=== PATIENT | male | born 1965 | race Caucasian/White ===

== ENCOUNTER 2017-08-09 08:04 | Emergency (ER) | payer OTHER ==
[2017-08-09] MEDS ORDERED: NS 1,000 ML IV ONE ×2 (08:12→08:54)
[2017-08-09] MEDS ORDERED: KETOROLAC 15 MG/1 ML SDV IVP ONE (08:13)
[2017-08-09] MEDS ORDERED: LIDOCAINE 1% 200 MG in NS 100 ML IV ONE (08:13)
--- NOTE | 2017-08-09 08:25 | EDPHY ---
H & P Stated Complaint: L flank pain radiating to L testicle;+n/v;dx'd w/UTI 3 days ago at [facility] Time Seen by Provider: 08/09/17 08:12 HPI/ROS: CHIEF COMPLAINT: Acute left flank pain and vomiting HISTORY OF PRESENT ILLNESS: The patient presents to the ED with complaints of severe acute left flank pain and vomiting. The patient developed milder symptoms on Sunday of this week. He was having some mild urinary frequency. The patient was seen at urgent care reportedly had a negative urinalysis. He was started on Bactrim at that point time. The patient reported his symptoms seem to improve however returned significantly this morning. He reports 5 episodes of bilious vomiting and 8/10 pain in his left flank. The patient has no prior history of kidney stones. The patient denies any hematuria, history of fall, trauma, recent illness or significant past medical history. REVIEW OF SYSTEMS: A comprehensive 10 point review of systems is otherwise negative aside from elements mentioned in the history of present illness. Source: Patient Exam Limitations: No limitations - Personal History Current Tetanus Diphtheria and Acellular Pertussis (TDAP): Yes - Medical/Surgical History Other PMH: Good health - Social History Smoking Status: Never smoked - Physical Exam Exam: General Appearance: Alert, moderate distress secondary to pain Eyes: Pupils equal and round no pallor or injection ENT, Mouth: Mucous membranes moist Respiratory: There are no retractions, lungs are clear to auscultation Cardiovascular: Regular rate and rhythm Gastrointestinal: Left CVA tenderness, no abdominal tenderness appreciated Neurological: A&O, normal motor function, normal sensory exam, normal cranial nerves Skin: Warm and dry, no rashes Musculoskeletal: Neck is supple nontender Extremities: symmetrical, full range of motion Constitutional: Initial Vital Signs Temperature (C) 36.4 C 08/09/17 08:07 Heart Rate 82 08/09/17 08:07 Respiratory Rate 20 08/09/17 08:07 Blood Pressure 137/97 H 08/09/17 08:07 O2 Sat (%) 97 08/09/17 08:07 O2 Delivery Mode Room Air Allergies/Adverse Reactions: No Known Allergies Allergy (Verified 08/09/17 08:06) Home Medications: Medication Instructions Recorded Ondansetron Odt [Zofran Odt] 4 mg PO Q4PRN PRN #20 tab 08/09/17 Sulfamethox/Tmp 800/160 mg 1 tab PO 08/09/17 [Bactrim Ds] Tamsulosin HCl [Flomax] 0.4 mg PO DAILY PRN #5 cap 08/09/17 oxyCODONE IR [Oxycodone Ir (*)] 5 - 10 mg PO Q6 PRN #20 tab 08/09/17 Medical Decision Making - Diagnostics Imaging Results: Imaging Impressions Abdomen/Pelvis CT 08/09/17 08:23 Impression: Mild obstructive uropathy (hydroureteronephrosis) on the left secondary to a 3 mm calculus noted within the inner wall of the contracted urinary bladder near the ureterovesical junction. Attention: This CT examination is specifically designed to evaluate patients who are clinically suspected of having acute obstructive uropathy. This examination does not use radiographic contrast, and as such, provides only a limited evaluation of the abdomen, pelvis, and retroperitoneum. If there is further clinical suspicion for pathological conditions other than obstructive uropathy, a complete CT evaluation of the abdomen and pelvis utilizing intravenous, oral, and rectal contrast should be considered. Findings were discussed with Felipe Partida MD at 9:05, on 08/09/2017. ED Course/Re-evaluation: The patient presents to the ED with severe left flank pain. The patient had an IV established. He received 15 mg of Toradol and a lidocaine infusion was ordered. A bedside ultrasound did demonstrate mild hydronephrosis on the left. I was unable to visualize an obvious stone. CT scan of the abdomen pelvis does demonstrate a 3 mm to left ureteral stone with evidence of mild hydronephrosis. I re-evaluated the patient at 9:20 a.m.. He reports his pain is currently a 2/ 10 and he is feeling much better. The patient was noted to have a slightly elevated creatinine of 1.7 on his initial laboratory studies. The patient will be advised to stop taking Bactrim. After IV fluid rehydration his creatinine is now 1.5. I have asked him to avoid NSAIDs and stick to Tylenol and oxycodone as needed for pain management. The patient should have his kidney function recheck by his primary care provider in the next 1-2 weeks. The patient was re-evaluated at 10:00 a.m. and is comfortable being discharged home. Differential Diagnosis: Differential diagnosis considered includes nephrolithiasis, pyelonephritis, ureterolithiasis, cystitis, prostatitis - Data Points Laboratory Results: Laboratory Results 08/09/17 08:20 08/09/17 09:40 08/09/17 08/09/17 08/09/17 09:40 08:20 08:20 WBC 9.30 10^3/uL 10^3/uL (3.80-9.50) RBC 6.05 10^6/uL 10^6/uL (4.40-6.38) Hgb 17.7 g/dL H g/dL (13.7-17.5) Hct 48.1 % % (40.0-51.0) MCV 79.5 fL L fL (81.5-99.8) MCH 29.3 pg pg (27.9-34.1) MCHC 36.8 g/dL H g/dL (32.4-36.7) RDW 11.9 % % (11.5-15.2) Plt Count 231 10^3/uL 10^3/uL (150-400) MPV 9.8 fL fL (8.7-11.7) Neut % (Auto) 68.4 % % (39.3-74.2) Lymph % (Auto) 23.9 % % (15.0-45.0) [place] % (Auto) 6.8 % % (4.5-13.0) Eos % (Auto) 0.3 % L % (0.6-7.6) Baso % (Auto) 0.3 % % (0.3-1.7) Nucleat RBC Rel Count 0.0 % % (0.0-0.2) Absolute Neuts (auto) 6.36 10^3/uL 10^3/uL (1.70-6.50) Absolute Lymphs (auto) 2.22 10^3/uL 10^3/uL (1.00-3.00) Absolute Monos (auto) 0.63 10^3/uL 10^3/uL (0.30-0.80) Absolute Eos (auto) 0.03 10^3/uL 10^3/uL (0.03-0.40) Absolute Basos (auto) 0.03 10^3/uL 10^3/uL (0.02-0.10) Absolute Nucleated RBC 0.00 10^3/uL 10^3/uL (0-0.01) Immature Gran % 0.3 % % (0.0-1.1) Immature Gran # 0.03 10^3/uL 10^3/uL (0.00-0.10) Sodium 141 mEq/L mEq/L 144 mEq/L mEq/L (134-144) (134-144) Potassium 4.5 mEq/L mEq/L 4.2 mEq/L mEq/L (3.5-5.2) (3.5-5.2) Chloride 112 mEq/L H mEq/L 107 mEq/L mEq/L (97-110) (97-110) Carbon Dioxide 20 mEq/l L mEq/l 22 mEq/l mEq/l (22-31) (22-31) Anion Gap 9 mEq/L mEq/L 15 mEq/L mEq/L (8-16) (8-16) BUN 23 mg/dL mg/dL 23 mg/dL mg/dL (7-23) (7-23) Creatinine 1.5 mg/dL H mg/dL 1.7 mg/dL H mg/dL (0.7-1.3) (0.7-1.3) Estimated GFR 50 43 Glucose 98 mg/dL mg/dL 104 mg/dL H mg/dL (70-100) (70-100) Calcium 9.0 mg/dL mg/dL 10.4 mg/dL mg/dL (8.5-10.4) (8.5-10.4) Urine Color Urine Appearance Urine pH Ur Specific [place] Urine Protein Urine Ketones Urine Blood Urine Nitrate Urine Bilirubin Urine Urobilinogen Ur Leukocyte Esterase Urine RBC Urine WBC Ur Epithelial Cells Calcium Oxalate Crystal Urine Mucus Urine Glucose 08/09/17 08:15 WBC RBC Hgb Hct MCV MCH MCHC RDW Plt Count MPV Neut % (Auto) Lymph % (Auto) Izard % (Auto) Eos % (Auto) Baso % (Auto) Nucleat RBC Rel Count Absolute Neuts (auto) Absolute Lymphs (auto) Absolute Monos (auto) Absolute Eos (auto) Absolute Basos (auto) Absolute Nucleated RBC Immature Gran % Immature Gran # Sodium Potassium Chloride Carbon Dioxide Anion Gap BUN Creatinine Estimated GFR Glucose Calcium Urine Color YELLOW Urine Appearance CLEAR Urine pH 5.0 (5.0-7.5) Ur Specific [place] 1.030 (1.002-1.030) Urine Protein 1+ H (NEGATIVE) Urine Ketones NEGATIVE (NEGATIVE) Urine Blood 3+ H (NEGATIVE) Urine Nitrate NEGATIVE (NEGATIVE) Urine Bilirubin NEGATIVE (NEGATIVE) Urine Urobilinogen NEGATIVE EU EU (0.2-1.0) Ur Leukocyte Esterase NEGATIVE (NEGATIVE) Urine RBC 10-15 /hpf H /hpf (0-3) Urine WBC 1-3 /hpf /hpf (0-3) Ur Epithelial Cells NONE SEEN /lpf /lpf (NONE-1+) Calcium Oxalate Crystal PRESENT /hpf /hpf (NONE-1+) Urine Mucus TRACE /lpf /lpf (NONE-1+) Urine Glucose NEGATIVE (NEGATIVE) Medications Given: Discontinued Medications Sodium Chloride (Ns) 1,000 mls @ 0 mls/hr IV EDNOW ONE; Wide Open PRN Reason: Protocol Stop: 08/09/17 08:13 Last Admin: 08/09/17 08:22 Dose: 1,000 mls Lidocaine HCl 200 mg/ Sodium (Chloride) 120 mls @ 600 mls/hr IV EDNOW ONE Stop: 08/09/17 08:24 Last Admin: 08/09/17 08:48 Dose: 120 mls Sodium Chloride (Ns) 1,000 mls @ 0 mls/hr IV EDNOW ONE; Wide Open PRN Reason: Protocol Stop: 08/09/17 08:55 Last Admin: 08/09/17 09:02 Dose: 1,000 mls Ketorolac Tromethamine (Toradol) 15 mg IVP EDNOW ONE Stop: 08/09/17 08:14 Last Admin: 08/09/17 08:22 Dose: 15 mg Promethazine HCl (Phenergan) 12.5 mg IVP EDNOW ONE Stop: 08/09/17 08:29 Last Admin: 08/09/17 08:29 Dose: 12.5 mg Tamsulosin HCl (Flomax) 0.4 mg PO EDNOW ONE Stop: 08/09/17 09:02 Last Admin: 08/09/17 09:06 Dose: 0.4 mg Departure - Departure Disposition: Home, Routine, Self-Care Clinical Impression: Calculus of left kidney, Renal insufficiency Condition: Good Instructions: Kidney Stones (ED), How to Strain Your Urine (ED) Additional Instructions: 1. Tylenol as needed for pain. 2. Oxycodone as needed for severe pain 3. Flomax as directed 4. Zofran as needed for nausea 5. Strain urine as directed 6. Return to the Emergency Department for intractable pain, fever or vomiting. 7. Followup with the urologist you have been referred to for unimproved symptoms. 8. Please stop taking Bactrim. 9. Please avoid taking ibuprofen as your kidney function was slightly elevated. Please have this recheck by your primary care provider in the coming week. Referrals: Elida Neil MD [Medical Doctor] - As per Instructions
[2017-08-09] MEDS ORDERED: PROMETHAZINE HCL 25 MG/ML INJ ONE (08:27)
[2017-08-09] MEDS ORDERED: PROMETHAZINE HCL 25 MG/ML INJ IVP ONE (08:28)
[2017-08-09 08:29] LABS: % IMMATURE GRANULYOCYTES 0.3 % (0.0-1.1); ABSOLUTE IMMATURE GRANULOCYTES 0.03 10^3/uL (0.00-0.10); ADD DIFF? NO; ADD MORPH? NO; ADD SCAN? NO; ATYPICAL LYMPHOCYTE FLAG 0 (0-99); FRAGMENT RBC FLAG 0 (0-99); HEMATOCRIT 48.1 % (40.0-51.0); HEMOGLOBIN 17.7 g/dL (13.7-17.5); LEFT SHIFT FLG 0 (0-99); LIPEMIA HEMOLYSIS FLAG 90 (0-99); MEAN CELL HEMOGLOBIN 29.3 pg (27.9-34.1); MEAN CELL HEMOGLOBIN CONCENTR. 36.8 g/dL (32.4-36.7); MEAN CELL VOLUME 79.5 fL (81.5-99.8); MEAN PLATELET VOLUME 9.8 fL (8.7-11.7); PLATELET CLUMPS FLAG 0 (0-99); PLATELET COUNT 231 10^3/uL (150-400); RED BLOOD CELL COUNT 6.05 10^6/uL (4.40-6.38); RED CELL DISTRIBUTION WIDTH 11.9 % (11.5-15.2)
[2017-08-09 08:52] LABS: ANION GAP 15 mEq/L (8-16); CALCIUM 10.4 mg/dL (8.5-10.4); CARBON DIOXIDE 22 mEq/l (22-31); CHLORIDE 107 mEq/L (97-110); CREATININE 1.7 mg/dL (0.7-1.3); GLOMERULAR FILTRATION RATE 43; GLUCOSE 104 mg/dL (70-100); POTASSIUM 4.2 mEq/L (3.5-5.2); SODIUM 144 mEq/L (134-144)
[2017-08-09 08:57] LABS: COLOR YELLOW; LEUKOCYTE ESTERASE,URINE NEGATIVE (NEGATIVE); NITRITE,URINE NEGATIVE (NEGATIVE)
[2017-08-09] MEDS ORDERED: TAMSULOSIN HCL 0.4 MG CAP PO ONE (09:01)
[2017-08-09 09:04] LABS: MUCUS TRACE /lpf (NONE-1+)
[2017-08-09 10:04] LABS: ANION GAP 9 mEq/L (8-16); CARBON DIOXIDE 20 mEq/l (22-31); CHLORIDE 112 mEq/L (97-110); CREATININE 1.5 mg/dL (0.7-1.3); GLOMERULAR FILTRATION RATE 50; GLUCOSE 98 mg/dL (70-100); POTASSIUM 4.5 mEq/L (3.5-5.2); SODIUM 141 mEq/L (134-144)
[2017-08-09 10:33] VITALS: BP 130/83; PULSE 101; RESP 16; TEMP 98.2; O2SAT 93
== END 2017-08-09 10:33 | disposition home or self-care (01) ==
DX: N20.0 Calculus of kidney (principal); N28.9 Disorder of kidney and ureter, unspecified; E86.9 Volume depletion, unspecified
CPT/HCPCS: 96374; J1885; J2550

== ENCOUNTER → 2018-01-10 | Outpatient (CLI) | payer OTHER | LOC: BMCIMAGING 14:54 | PROVIDERS: ATTEND Internal Medicine Endocrinology, Diabetes & Metabolism | DX: Z13.820 Encounter for screening for osteoporosis (principal); M85.89 Other specified disorders of bone density and structure, multiple sites; E21.3 Hyperparathyroidism, unspecified ==

== ENCOUNTER → 2018-01-11 | Outpatient (CLI) | payer OTHER | LOC: FIMAGING 10:13 | PROVIDERS: ATTEND Internal Medicine Endocrinology, Diabetes & Metabolism | DX: E21.3 Hyperparathyroidism, unspecified (principal) | CPT/HCPCS: 78070; A9500; A9516 ==